=== PATIENT | male | born 2000 | race Two or more races ===

== ENCOUNTER 2022-06-11 19:44 | Emergency (ER) | payer SELFPAY ==
[~2022-06-11] VITALS: Ht 170.2 cm; Wt 74.0 kg
[2022-06-11 19:49] VITALS: BP 125/74
--- NOTE | 2022-06-11 20:17 | NUR ---
RESPIRATORY CLINICIAN USED
== END 2022-06-11 21:00 | disposition home or self-care (01) ==
LOC: ER 19:47
DX: R07.89 Other chest pain (principal)
CPT/HCPCS: 93005; 99281